=== PATIENT | female | born 1975 | race Caucasian/White ===

== ENCOUNTER 2023-03-01 10:20 | Emergency (ER) | payer OTHER ==
[~2023-03-01] VITALS: Ht 152.4 cm; Wt 68.0 kg
[2023-03-01 10:23] VITALS: BP 128/68; PULSE 76; RESP 18; TEMP 97.8; O2SAT 98
[2023-03-01 10:34] VITALS: O2SAT 98
[2023-03-01] MEDS ORDERED: HYDROcodone/APAP 5/325 MG 1 TAB TAB PO ONE (11:10)
[2023-03-01] MEDS ORDERED: KETOROLAC 30 MG/ML VIAL IM ONE (11:10)
[2023-03-01 11:17] LABS: BASOPHILS # (AUTO) 0.1 K/uL (0.00-0.22); BASOPHILS % (AUTO) 0.6 % (0.0-2.0); EOSINOPHILS # (AUTO) 0.3 K/uL (0-0.4); EOSINOPHILS % (AUTO) 3.3 % (0.0-4.0); HEMATOCRIT 41.2 % (36-48); HEMOGLOBIN 14.1 g/dL (12.0-16.0); LYMPHOCYTES # (AUTO) 2.9 K/uL (2.5-16.5); LYMPHOCYTES % (AUTO) 31.4 % (20.5-51.1); MEAN CORPUSCULAR HEMOGLOBIN 29 pg (27-31); MEAN CORPUSCULAR HGB CONC 34 g/dL (33-37); MEAN CORPUSCULAR VOLUME 85.5 fL (80-94); MONOCYTES # (AUTO) 0.6 K/uL (0.8-1.0); MONOCYTES % (AUTO) 6.1 % (1.7-9.3); NEUTROPHILS # (AUTO) 5.4 K/uL (1.8-7.7); NEUTROPHILS % (AUTO) 58.6 % (42.2-75.2); PLATELET COUNT (AUTO) 323 K/uL (140-450); RED BLOOD CELL COUNT(AUTO) 4.82 MIL/uL (4.20-5.40); WHITE BLOOD COUNT (AUTO) 9.2 K/uL (4.8-10.8)
[2023-03-01 11:37] LABS: ALBUMIN 3.8 g/dL (3.4-5.0); ANION GAP 12.9 (8-16); CALCIUM 8.9 mg/dL (8.5-10.1); CARBON DIOXIDE 24.8 mmol/L (21-32); CREATININE 0.8 mg/dL (0.6-1.3); POTASSIUM 3.7 mmol/L (3.5-5.1); TOTAL BILIRUBIN 0.3 mg/dL (0.0-1.0); TOTAL PROTEIN, SERUM 9.1 g/dL (6.4-8.2)
[2023-03-01 13:10] LABS: APPEARANCE,URINE CLEAR (CLEAR); BILIRUBIN,URINE NEGATIVE (NEGATIVE); BLOOD, URINE 2+ (NEGATIVE); COLOR,URINE YELLOW (YELLOW); LEUKOCYTE ESTERASE ,URINE NEGATIVE (NEGATIVE); NITRITE, URINE NEGATIVE (NEGATIVE); PROTEIN,URINE NEGATIVE (NEGATIVE); UGLUCOSE NEGATIVE (NEGATIVE); UROBILINOGEN,URINE 0.2 EU/dL (0.2 - 1)
[2023-03-01] MEDS ORDERED: IBUP-2213 PO (13:13)
[2023-03-01] MEDS ORDERED: TRAM50TA3 PO (13:13)
[2023-03-01 13:18] VITALS: BP 128/68; PULSE 76; RESP 18; TEMP 97.8; O2SAT 98
[2023-03-01 13:31] LABS: BACTERIA,URINE FEW /HPF (None Seen); MUCUS,URINE None Seen /LPF (None Seen); RBC,URINE 11-20 (MOD) /HPF (0-5); SQUAMOUS EPITHELIAL CELL,UR 0-3 (FEW) /LPF (0-3 (FEW)); WBC,URINE 0-5 /HPF (0-5)
[2023-03-01 13:32] LABS: TRICHOMONAS,URINE None Seen /HPF (None Seen); WHITE BLOOD CELL CASTS,URINE None Seen /LPF (None Seen); YEAST,URINE None Seen /HPF (None Seen)
== END 2023-03-01 13:18 | disposition home or self-care (01) ==
LOC: MED 10:20
DX: M72.2 Plantar fascial fibromatosis (principal); M79.18 Myalgia, other site; Z79.899 Other long term (current) drug therapy; Z79.1 Long term (current) use of non-steroidal anti-inflammatories (NSAID)
CPT/HCPCS: 36415; 80053; 81001; 82553; 85025; 85651; 96372; 99283; J1885

== ENCOUNTER 2023-04-03 17:06 | Emergency (ER) | payer OTHER ==
[~2023-04-03] VITALS: Ht 160 cm; Wt 72.6 kg
[~2023-04-03 17:06] MED LIST: IBUP-2213 PO; TRAM50TA3 PO
[2023-04-03 17:21] VITALS: BP 125/92; PULSE 71; RESP 16; TEMP 98; O2SAT 98
[2023-04-03] MEDS ORDERED: METH-1681 PO (17:38)
[2023-04-03] MEDS ORDERED: IBUP-2218 PO (17:38)
[2023-04-03] MEDS ORDERED: LIDO1ADH54 TP (17:38)
[2023-04-03] MEDS: HYDROcodone/APAP 10/325 MG 1 TAB TAB PO PRN (18:08)
== END 2023-04-03 18:46 | disposition home or self-care (01) ==
LOC: MED 17:06
DX: M54.50 Low back pain, unspecified (principal); R03.0 Elevated blood-pressure reading, without diagnosis of hypertension; Z79.899 Other long term (current) drug therapy
CPT/HCPCS: 81002; 81025; 99283

== ENCOUNTER 2023-11-22 08:10 | Emergency (ER) | payer OTHER ==
[~2023-11-22] VITALS: Ht 154.9 cm; Wt 78.0 kg
[~2023-11-22 08:10] MED LIST changes: +IBUP-2218 PO; +LIDO1ADH54 TP; +METH-1681 PO
[2023-11-22 08:19] VITALS: BP 123/78; PULSE 52; RESP 18; TEMP 97.1; O2SAT 99
[2023-11-22] MEDS: LIDOCAINE 5% 1 EA PATCH TP ONE (09:16)
[2023-11-22] MEDS: KETOROLAC 30 MG/ML VIAL IM ONE (09:17)
[2023-11-22] MEDS: diazePAM 5 MG TAB PO ONE (10:27)
[2023-11-22] MEDS ORDERED: DICL20GE TP (11:15)
[2023-11-22] MEDS ORDERED: CYCL-711 PO (11:15)
[2023-11-22] MEDS ORDERED: GABA300C PO (11:15)
[2023-11-22 11:48] VITALS: BP 101/59; PULSE 63; RESP 18; TEMP 97.1; O2SAT 99
== END 2023-11-22 11:48 | disposition home or self-care (01) ==
LOC: MED 08:10
DX: M62.838 Other muscle spasm (principal); M62.830 Muscle spasm of back; Z79.899 Other long term (current) drug therapy
CPT/HCPCS: 72050; 73030; 81025; 96372; 99284; J1885